=== PATIENT | male | born 1980 | race Caucasian/White ===

== ENCOUNTER 2022-08-29 22:09 | Emergency (ER) | payer MEDICAID ==
[~2022-08-29] VITALS: Ht 188 cm; Wt 127.0 kg
[2022-08-29 22:14] VITALS: BP_SYST 198
[2022-08-29 22:50] VITALS: BP_SYST 170
== END 2022-08-29 22:50 ==
LOC: SED 22:09
DX: M54.6 Pain in thoracic spine (principal); I10 Essential (primary) hypertension; Z79.899 Other long term (current) drug therapy
CPT/HCPCS: 99283